=== PATIENT | male | born 1995 ===

== ENCOUNTER 2017-03-28 08:05 | Outpatient (CLI) | payer OTHER ==
[2017-03-28] VITALS (7 sets, daily range): BP systolic 106–133; BP diastolic 55–84
[~2017-03-28] VITALS: Ht 188 cm; Wt 112.0 kg
[2017-03-28 08:54] LABS: BASO % 0 % (0-3); EOS % 1 % (0-3); HEMATOCRIT 43.5 % (39.0-53.0); HEMOGLOBIN 14.9 g/dL (13.0-17.5); LYMPH # 1.4 x10^3/uL (1.0-4.8); LYMPH % 26 % (24-48); MEAN CORPUSCULAR HEMOGLOBIN 28 pg (25-35); MEAN CORPUSCULAR HGB CONC 34 g/dL (31-37); MEAN CORPUSCULAR VOLUME 81 fL (79-100); MONO % 6 % (0-9); NEUT % 66 % (31-73); PLATELET COUNT 195 x10^3/uL (140-400); WHITE BLOOD COUNT 5.3 x10^3/uL (4.0-11.0)
[2017-03-28 09:11] LABS: PROTHROMBIN TIME PATIENT 12.2 SEC (11.7-14.0)
[2017-03-28] MEDS ORDERED: LIDOCAINE 1% / SOD BICARB 8.4% 20 ML VIAL. IJ ONE ×2 (09:43→10:00)
[2017-03-28] MEDS ORDERED: MIDAZOLAM HCL/PF 5 MG/5 ML VIAL. ONE (09:56)
[2017-03-28] MEDS ORDERED: fentaNYL PF VIAL 250 MCG/5 ML VIAL ONE (09:56)
[2017-03-28] MEDS ORDERED: fentaNYL PF VIAL 250 MCG/5 ML VIAL IV ONE (10:00)
[2017-03-28] MEDS ORDERED: MIDAZOLAM HCL/PF 5 MG/5 ML VIAL. IV ONE (10:00)
--- NOTE | 2017-03-28 11:50 | RAD ---
CT-guided bone marrow biopsy, left iliac crest Indication: Splenomegaly Discussion: The risks and benefits of the procedure, including but not limited to, bleeding and infection were discussed patient. Informed consent was obtained. The patient was brought to the CT scanner and placed in the prone position. A timeout procedure was performed. [employer] Supervisor CT imaging of the pelvis demonstrated left ilium amenable to bone marrow biopsy. The overlying soft tissues were prepped and draped using maximum sterile barrier technique. 1% lidocaine without epinephrine was administered for local anesthesia. A biopsy needle was advanced into the marrow space of the posterior left iliac crest. 2 aspirate samples were obtained and delivered to pathology was present at the time of exam. A core sample was then obtained, and delivered to pathology. Needle was removed and pressure held until hemostasis. No complications were identified. The patient tolerated the procedure well. Procedure was performed under conscious sedation including continuous cardiopulmonary via a dedicated sedation nurse. Sedation time: 20 minutes Impression: Successful CT-guided bone marrow biopsy of the left iliac crest
== END 2017-03-28 11:00 | disposition home or self-care (01) ==
LOC: INTRAD 08:05
PROVIDERS: ATTEND Internal Medicine Hematology & Oncology
DX: R16.1 Splenomegaly, not elsewhere classified (principal); Z79.01 Long term (current) use of anticoagulants
CPT/HCPCS: 36415; 38221; 77012; 85027; 85610; 88184; 88185; 88237; 99152; C1887; G0364; J2250; J3010; 99153